=== PATIENT | male | born 1930 | race Caucasian/White ===

== ENCOUNTER 2019-06-13 15:11 | Inpatient (IN) | payer MEDICARE, MEDICAID ==
[~2019-06-13] VITALS: Ht 177.8 cm; Wt 68.9 kg
[2019-06-13] MEDS ORDERED: LIPITOR20 MG PO (17:37)
[2019-06-13] MEDS ORDERED: PEPCID20 MG PO (17:39)
[2019-06-13] MEDS ORDERED: FUROSEMIDE40 MG PO (17:40)
[2019-06-13] MEDS ORDERED: LANTUS SOL100 UNIT/1 SQ (17:40)
[2019-06-13] MEDS ORDERED: LEVOTHYROXINE50 MCG PO (17:41)
[2019-06-13] MEDS ORDERED: MULTIVITAMINS1 EAC5 PO (17:41)
[2019-06-13] MEDS ORDERED: OYSTER SHELL C500 M4 PO (17:42)
[2019-06-13] MEDS ORDERED: PLAVIX75 M1 PO (17:43)
[2019-06-13] MEDS ORDERED: ZINC SULFATE220 M2 PO (17:44)
[2019-06-13] MEDS ORDERED: ELIQUIS2.5 M1 PO (17:45)
[2019-06-13] MEDS ORDERED: ACIDOPHILUS1 EACH PO (17:46)
[2019-06-13] MEDS ORDERED: RISPERDAL0.25 MG PO (17:47)
[2019-06-13] MEDS ORDERED: POTASSIUM CHLO20 ME3 PO (17:49)
[2019-06-13] MEDS ORDERED: HUMALOG100 UNIT/2 SQ (17:51)
[2019-06-13] MEDS ORDERED: Hydralazine Hyd25 MG PO (17:52)
[2019-06-13] MEDS ORDERED: VENTOLIN 02.5 MG/3 M INH (17:52)
[2019-06-13] MEDS ORDERED: Ipratropium Brom3 ML INH (17:53)
[2019-06-13] MEDS ORDERED: ANTI-DIARRHEAL2 MG PO (17:54)
[2019-06-13] MEDS ORDERED: GLUCOSE GEL38 GM PO (17:54)
[2019-06-13] MEDS ORDERED: MILK OF MA400 MG/5 M PO (17:55)
[2019-06-13] MEDS ORDERED: TYLENOL325 M2 PO (17:55)
--- NOTE | 2019-06-14 14:32 | NUR ---
DADA GARCIA a 88 year old M admitted via stretcher from the ADMITTING as a voluntary BY POA admission. Arrived on unit at 1432. ALLERGIES: NKA. Vital signs are: [id number] 122/64 SPO2 99%RA. The client's POA verbally consented to the following forms with stated understanding: Authorization For The Release of Medical Information, Clothing List, Consent to Voluntary Admission and Hospitalization, Consent and Release Forms/Receipt of Rights, Acknowledgement of Advance Directive Information, Behavioral Health Consent Form, and Informed Consent of Medications, witnessed x 2 RNs. Admitted under the services of Dr. KATIE MEDINA,[facility]. A search was conducted and hazardous articles were removed. Client was oriented to the unit. LEELEE CEJA
--- NOTE | 2019-06-14 14:58 | NUR ---
NOTIFIED OF BLOOD SUGAR OF 60 UPON ADMISSION TO UNIT. PT ALERT AND TALKING WITH STAFF. NO S/S DIABETIC IMBALANCE NOTED AT THIS TIME. STATES OK TO GIVE ORANGE JUICE AT THIS TIME AND RECHECK BSG.
--- NOTE | 2019-06-14 15:00 | NUR ---
BSG INCREASED TO 74.
[2019-06-14 15:36] VITALS: BP 122/64
[2019-06-14 15:42] VITALS: BP 122/64
--- NOTE | 2019-06-14 15:48 | NUR ---
PM GROUP/BINGO! PT JUST ADMITTED TO UNIT AND BECOMING ORIENTED. PT ACTIVITY ASSESSMENT WILL BE COMPLETED SOON POSSIBLE.
--- NOTE | 2019-06-14 16:00 | NUR ---
[facility] NURSING HOTEL AND DINING ROOM CASHIER ON UNIT FOR WOUND STAGING.
--- NOTE | 2019-06-14 16:15 | NUR ---
BSG 111
--- NOTE | 2019-06-14 16:36 | NUR ---
ON UNIT TO SEE PT AT THIS TIME. PROVIDED WITH PT CHART. MADE AWARE PT NOTED WITH 10 WOUNDS, WOUND CARE ORDERS NEEDED WELL ORDERS FOR WHEELCHAIR CUSHION AND HEEL PROTECTOR BOOTS.
[2019-06-14 16:56] LABS: BASO # 0.1 10*3/uL (0.0-0.1); BASO % 0.4 % (0.0-1.0); EOS # 0.2 10*3/uL (0.0-0.4); EOS % 1.5 % (1.0-4.0); HEMATOCRIT 33.3 % (42.0-52.0); HEMOGLOBIN 10.4 g/dl (14.0-18.0); LYMPH # 1.4 10*3/uL (1.3-4.4); LYMPH % 10.5 % (27.0-41.0); MEAN CELL VOLUME 95.1 fl (80.0-94.0); MEAN CORPUSCULAR HGB 29.7 pg (27.0-31.0); MEAN CORPUSCULAR HGB CONC 31.2 g/dl (33.0-37.0); MEAN PLATELET VOLUME 12.5 fl (9.6-12.3); MONO # 0.9 10*3/uL (0.1-1.0); MONO % 6.2 % (3.0-9.0); NEUT # 11.1 10*3/uL (2.3-7.9); NEUT % 81.1 % (47.0-73.0); PLATELET COUNT AUTOMATED 165 10*3/uL (130-400); RED CELL DISTRI WIDTH 14.2 % (0-14.5); WHITE BLOOD COUNT 13.7 10*3/uL (4.8-10.8)
[2019-06-14 17:26] LABS: ALBUMIN 2.9 gm/dl (3.1-4.5); CREATININE 1.49 mg/dL (0.70-1.30); POTASSIUM 3.8 mmol/L (3.5-5.1); TOTAL PROTEIN 6.4 gm/dL (6.4-8.2)
[2019-06-14 17:34] LABS: THYROID STIM HORMONE (HS) 2.83 uIU/ml (0.358-4.75)
[2019-06-14 17:35] LABS: VITAMIN D, 25-HYDROXY 39.5 ng/mL (30-100)
--- NOTE | 2019-06-14 18:20 | NUR ---
URINALYSIS OBTAINED VIA CLEAN CATCH, LABELED AND SENT TO LAB VIA PHARMACY TUBE SYSTEM.
--- NOTE | 2019-06-14 18:52 | NUR ---
NOTIFIED OF PODIATRY CONSULT.
[2019-06-14 19:07] LABS: BILIRUBIN NEGATIVE (NEGATIVE); BLOOD NEGATIVE (NEGATIVE); CLARITY CLEAR (CLEAR); COLOR YELLOW (YELLOW); GLUCOSE NEGATIVE (NEGATIVE); KETONE NEGATIVE (NEGATIVE); LEUKO ESTERASE TRACE (NEGATIVE); NITRITE NEGATIVE (NEGATIVE); PH 5.5 (5.0-9.0); SPECIFIC GRAVITY 1.015 (1.005-1.030); UROBILINOGEN 0.2 E.U./dl (0.2-1.0)
[2019-06-14 19:31] LABS: BACTERIA TRACE
--- NOTE | 2019-06-14 20:37 | NUR ---
24 HR chart check completed.
--- NOTE | 2019-06-14 23:40 | NUR ---
P-CONFUSION, PARANOID STATEMENTS, IRRITABLE, NONCOMPLIANCE I-ASSESS ORIENTATION, ENCOURAGE VENTILATION OF FEELINGS & PROVIDE EMOTIONAL SUPPORT & REASSURANCE, ADMINISTER MEDS, MONITOR SLEEP R-MOOD IS IRRITABLE WITH INCREASED YELLING & BEING DISRUPTIVE ON THE UNIT. FREQUENTLY PUSHING CALL ZAMBRANO & ASKING STAFF TO STAY WITH HIM & OTHER NUMEROUS REQUESTES THAT HE WANTS IMMEDIATELY MET. ALERT TO PERSON ONLY & UNRECEPTIVE TO REORIENTATION & STATES "I DONT CARE ABOUT WHAT YEAR IT IS OR WHO THE PRESIDENT IS. I WANT DISCHARGED OUT THE DOOR & IN [place], [place] IN MY OWN HOUSE". WHEN REORIENTED PT BECOMES ARGUMENTATIVE & VOICES PARANOID STATEMENTS. 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 NEVER MET MY MOTHER. SHE YOUNG, WHEN I WAS ONLY A YEAR OLD". RECENT MEMORY IS VERY IMPAIRED. HS BEDSIDE GLUCOSE WAS 184. REFUSED VITAL SIGNS. REFUSED SNACK. ADEMENTALLY REFUSED ALL HS MEDICATIONS & INSULINS. REQUIRES 2 STAFF ASSISTS & HAS BEEN INCONTINENT OF URINE P-CONTINUE TO PROVIDE PHYSICAL ASSISTANCE & EMOTIONAL SUPPORT NEEDED. ENCOURAGE COMPLIANCE WITH ALL TREATMENT.
--- NOTE | 2019-06-15 03:44 | NUR ---
PT HAS BEEN SLEEPING QUIETLY PAST 2229. AWAKENED @ 0345 & BEDSIDE GLUCOSE TAKEN A NURSING MEASURE DUE TO PT NOT EATING & NOT TAKING MEDICATIONS & INSULINS. BS 84. PROMPTED & TOOK APPX 60 CC OF DIET DUSTY JODY MIXED WITH CRANBERRY JUICE.
--- NOTE | 2019-06-15 06:05 | NUR ---
PT SLEPT PAST 2230 EXCEPT FOR BRIEF AWAKENING @ 0345. RETURNED TO SLEEP. BEDSIDE GLUCOSE WAS 81.
--- NOTE | 2019-06-15 06:23 | NUR ---
AM BEDSIDE GLUCOSE 81. CO-0PERATIVE WITH LABS.
[2019-06-15 06:43] LABS: CHOLESTEROL 85 mg/dL (<200); HDL CHOLESTEROL 32 mg/dl (40-60); LDL CHOLESTEROL 34 mg/dL (9-159); TRIGLYCERIDES 96 mg/dl (<150); VLDL CHOLESTEROL 19 mg/dL (6-40)
--- NOTE | 2019-06-15 07:12 | NUR ---
REFUSED ALL AM MEDS.
[2019-06-15 07:52] VITALS: BP 127/62
--- NOTE | 2019-06-15 09:00 | NUR ---
DR. BENNETT ON UNIT TO ASSESS PATIENT.
--- NOTE | 2019-06-15 12:16 | NUR ---
PODIATRY CONSULT FOR BIATERAL HEEL WOUNDS AT [phone].
--- NOTE | 2019-06-15 13:31 | NUR ---
P: IRRITABLE, ANGRY, REFUSING MEDICATIONS AND TO EAT. I: ONE ON ONE REDIRECTION, ENCOURAGED MEDICATION COMPLAINCE AND TO EAT MEALS. R: EFFECTIVE FOR LUNCH MEAL AND MEDICATION; MORE COOPERATIVE AFTER FAMILY VISIT. PATIENT REFUSED TO PARTICIPATE WITH INTERVIEW, ALONG WITH MEDICATIONS. PATIENT ALLOWED THIS NURSE TO CHANGE DRESSING TREATMENTS. PATINT IS ALERT TO PERSON WITH CONFUSION; ABLE TO VOICE NEEDS. 2 PERSON ASSIST WITH ACTIVITIES OF DAILY LIVING, CONITNENT OF BOWEL AND BLADDER. SET UP FOR MEALS; REFUSED MEALS UNTIL LUNCH TIME. Q 15 MINUTE SAFETY CHECKS MAINTAINED. PATIENT UP IN BRIA CHAIR FOR COMFORT. HEEL PROTECTOR ON FOR SKIN CARE. P: CONTINUE TO MONITOR MOOD, AGGRESSION AND DELUSIONS. PROVIDE ONE ON ONE AND REDIRECTION NEEDED.
--- NOTE | 2019-06-15 14:10 | NUR ---
DR. KEARNEY ON UNIT TO ASSESS PATIENT.
--- NOTE | 2019-06-15 16:44 | NUR ---
Shift chart check completed.
--- NOTE | 2019-06-15 19:25 | NUR ---
24 HR chart check completed.
[2019-06-15 19:53] VITALS: BP 130/64
--- NOTE | 2019-06-15 21:39 | NUR ---
P-CONFUSION I-ASSESS ORIENTATION, ENCOURAGE VENTILATION OF FEELINGS & PROVIDE EMOTIONAL SUPPORT & REASSURANCE, ADMINISTER MEDS, MONITOR SLEEP R-MOOD IS PLEASANT THIS EVENING WITH A MUCH BRIGHTER AFFECT. ALERT & ORIENTED TO PERSON, PLACE & NAME OF PRESIDENT. STATED THE YEAR WAS 2012. MAINTAINES GOOD EYE CONTACT & APPROPRIATE CONVERSATION. NO YELLING OR AGITATION. SAT IN THE DINING ROOM IN A BRIA CHAIR WATCHING TV & TALKING APPROPRIATE WITH A FEMALE PEER. CONCENTRATION IS MUCH BETTER BUT THERE ARE STILL SOME MEMORY DEFICITS AT TIMES. HS BEDSIDE GLUCOSE WAS 184. COMPLIANT WITH ALL ASPECTS OF CARE & TOOK HS MEDICATIONS. ATE SNACK WITH A VERY GOOD APPETITE. REQUIRES 2 STAFF ASSISTS FOR TRANSFERS. P-CONTINUE TO MONITOR & PROVIDE PHYSICAL ASSISTANCE & EMOTIONAL SUPPORT NEEDED.
--- NOTE | 2019-06-16 05:54 | NUR ---
PT HAS SLEPT QUIETLY PAST 2144
--- NOTE | 2019-06-16 06:38 | NUR ---
AM BEDSIDE GLUCOSE 93. PLEASANT. CO-OPERATIVE. TOOK AM MEDICATIONS.
--- NOTE | 2019-06-16 07:09 | NUR ---
DADA GARCIA [id number] Please refer to the physician's history and physical for past medical history, comorbid conditions, and allergies. Diagnosis: INTERMITTENT EXPLOSIVE DISORDER Ervin Score: 11,HIGH RISK WOUND DESCRIPTIONS: Wound Number: 1 Location of the wound: left heel Type of wound: unstagaeble Thickness: Full Size: 5.0cm x 4.7cm x 0.1cm Tunneling: none Undermining: none Sinus Tract: none Presence of Exudate: Serous Amount: Light Color: Brown, yellow Odor: None Periwound Skin Appearance: Scar Wound edges: approximated Pain (associated with wound): none at time of assessment How does patient state this happened? pt stated this has been going on for 3 years and follows with [facility] Wound Number: 2 Location of the wound: left 3rd toe Thickness: Partial Size: 0.2cm x 0.2cm x <0.1cm Tunneling: none Undermining: none Sinus Tract: none Presence of Exudate: none Amount: None Color: Red Odor: None Periwound Skin Appearance: Erythema Wound edges: approximated Pain (associated with wound): none at time of assessment How does patient state this happened? pt stated this started about 1 year ago on his toes and follows with Dr. [facility] Wound Number: 3 Location of the wound: left 3rd toe Thickness: Partial Size: 0.3cm x 0.3cm x <0.1cm Tunneling: none Undermining: none Sinus Tract: none Presence of Exudate: none Amount: None Color: Red, brown Odor: None Periwound Skin Appearance: Erythema Wound edges: approximated Pain (associated with wound): none at time of assessment How does patient state this happened? pt stated this started about 1 year ago on his toes and follows with Dr. [facility] Wound Number: 4 Location of the wound: right heel Type of wound: stage 2 Thickness: Partial Size: 0.2cm x 1.3cm x 0.1cm Tunneling: none Undermining: none Sinus Tract: none Presence of Exudate: Serous Amount: Light Color: Red Odor: None Periwound Skin Appearance: Scar Wound edges: approximated Pain (associated with wound): none at time of assessment How does patient state this happened? pt stated this has been going on for 3 years and follows with [facility]. Wound Number: 5 Location of the wound: right hallux Thickness: Partial Size: 0.4cm x 0.2cm x <0.1cm Tunneling: none Undermining: none Sinus Tract: none Presence of Exudate: none Amount: None Color: Red Odor: None Periwound Skin Appearance: Erythema Wound edges: approximated Pain (associated with wound): none at time of assessment How does patient state this happened? pt stated this started about 1 year ago on his toes and follows with Dr. [facility] Wound Number: 6 Location of the wound: right great toe Thickness: Partial Size: 0.3cm x 1.3cm x <0.1cm Tunneling: none Undermining: none Sinus Tract: none Presence of Exudate: Serosanguineous Amount: Light Color: Red Odor: None Periwound Skin Appearance: Erythema Wound edges: approximated Pain (associated with wound): none at time of assessment How does patient state this happened? pt stated this started about 1 year ago on his toes and follows with Dr. [facility] Wound Number: 7 Location of the wound: right 2nd toe Thickness: Partial Size: 0.4cm x 0.4cm x <0.1cm Tunneling: none Undermining: none Sinus Tract: none Presence of Exudate: none Amount: none Color: Red Odor: None Periwound Skin Appearance: Erythema Wound edges: approximated Pain (associated with wound): none at time of assessment How does patient state this happened? pt stated this started about 1 year ago on his toes and follows with Dr. [facility] Wound Number:8 coccyx is red and blanchable at time of assessment. No open areas noted at time of assessment. No drainage noted at time of assessment. Wound Number: 9 Location of the wound: right forearm Thickness: skintear Size: 0.9cm x 1.0cm x 0.1cm Tunneling: none Undermining: none Sinus Tract: none Presence of Exudate: Serosanguineous Amount: Light Color: Red Odor: None Periwound Skin Appearance: Erythema Wound edges: approximated Pain (associated with wound): none at time of assessment How does patient state this happened? pt stated he bumped his arm about one week moving furniture Wound Number: 10 Location of the wound: left elbow Thickness: Partial Size: 2.2cm x 1.7cm x <0.1cm Tunneling: none Undermining: none Sinus Tract: none Presence of Exudate: Serosanguineous Amount: Light Color: Red Odor: None Periwound Skin Appearance: Erythema Wound edges: approximated Pain (associated with wound): none at time of assessment How does patient state this happened? pt stated he bumped his arm about one week moving furniture right 5th toe is red and blanchable at time of assesssment. No open areas noted at time of assessment. no drainage noted at time of assessment. Left posterior lower extremity indent scar noted. No draiange at time of assessment. No redness at time of assessment. Surface the patient is resting on: Proform SKIN PREVENTION RECOMMENDATION: 1. Pressure redistribution support surface as appropriate 2. Elevate heels 3. Remove boots/TEDS every shift and reapply 4. Head of bed 30 degrees as tolerated 5. Assess nutrition and hydration 6. Manage moisture 7. Avoid the use of containment devices while in bed 8. Use absorptive products on surfaces limit layers of linens on bed 9. Turn and reposition every 1-2 hours in bed and every 1 hour in chair as tolerated 10. Weight shifts every 15 minutes while up in chair 11. Offloading with pillows or device to keep heels elevated off bed 12. Monitor skin at least every shift 13. Inspect under medical devices twice a day WOUND TREATMENT RECOMMENDATIONS: Continue heel raiser pro boots to bilateral feet while in bed. Continue wheelchair cushion when oob. Venous and arterial ultrasounds pending at time of assessment. Podiatry is already on consult for foot wounds if studies allow may need debridement D/C calazime D/C stage 1 guidelines Dressing change: Cleanse coccyx with soap and water and apply hydraguard every shift and prn for soiling. D/C skin tear guidelines to left elbow D/C skin tear guidelines to right forearm. Skin tear guidelines: Cleanse left elbow and right forearm with nss and apply sureprep around the wound hydrogel to wound bed and cover with optifoam gentle every 2 days and prn for soiling. D/C unstageable guidelines to right heel D/C unstageable guidelines to left heel Unstagable guidelines: Apply betadine to right heel, left heel, right 2nd toe, right great toe, right hallux, left 3rd toe and left 2nd toe daily and cover with dsd daily and prn for soiling D/C skin tear guidelines to right 2nd toe. D/C skin tear guideline to right hallux D/C skin tear guidelines to right 3rd toe D/C skin tear guidelines to right great toe. D/C skin tear guidelines to left 3rd toe D/C skin tear guidelines to left 2nd toe
[2019-06-16 07:47] VITALS: BP 148/66
--- NOTE | 2019-06-16 07:55 | NUR ---
PHYSICAL THERAPY Screen receievd as well as orders for PT will follow, thank you Carolee Greer PT
--- NOTE | 2019-06-16 08:15 | NUR ---
Treatment Plan meeting was held with Dr. Richards, SEDA Moy, RN, AT, BUILDING WRECKER-S and Team Foreman in attendance. Plan for discharge next week. Pt. to return to [facility].
--- NOTE | 2019-06-16 08:58 | NUR ---
Nursing screen and Occupational Therapy referral received. Thank you. Re Garvey OTR/l
--- NOTE | 2019-06-16 10:27 | NUR ---
Dr. Alejandro notified of wound care recommendations.
--- NOTE | 2019-06-16 10:28 | NUR ---
Spoke with Criss in Admissions at [facility]. Pt. will return to Facility at discharge. Clinical Updates faxed to facility.
--- NOTE | 2019-06-16 11:46 | NUR ---
AM GROUP PT ATTENDED MORNING GROUP THERAPY AND PARTICIPATED IN ALL ACTIVITIES. PT WAS QUIET AND ON TASK. PT EXHIBITED NO AGITATION OR AGGRESSION WHILE IN GROUP. PT WAS POLITE AND CONVERSATION WAS IN CONTEXT.
--- NOTE | 2019-06-16 15:03 | NUR ---
Met with pt, his Larisa, and their daughter Demetria. Discussed pt's medical hx and what caused pt's [facility] admission. Pt shared about his history. Confirmed with pt's family that they are wanting pt to return to [place]. Pt was pleasant throughout conversation. Pt showed no adverse behavior nor voiced any hallucinations,
--- NOTE | 2019-06-16 15:36 | NUR ---
PM GROUP PT WAS PRESENT FOR AFTERNOON GROUP THERAPY BUT CHOSE NOT TO PARTICIPATE IN ANY ACTIVITY OFFERED. PT WAS OBSERVANT AND PLEASANT. PT EXHIBITED NO AGITATION OR AGGRESSION WHILE IN GROUP.
[2019-06-16 19:54] VITALS: BP 149/75
--- NOTE | 2019-06-16 20:47 | NUR ---
EVENING/LEISURE SKILLS PT ATTENDED AND PARTICIPATED IN ALL ACTIVITY. PT PLEASANT AND JOINING IN PEER CONVERSATION. PT EXPRESSES CONFUSION AT TIMES BUT EASILY REDIRECTED. PT EXPRESSED NO HALLUCINATIONS OR DELUSIONS AT THIS TIME, BUT ATTEMPTING TO GET UP AND WALK ALTHOUGH PT HAS BOOTS ON FEET. THIS STAFF ATTEMPTS TO REDIRECT PT. MHW ATTEMPTING REDIRECTION WELL. PT WILL CONTINUE TO ATTEND AN DPARTICIPATE IN FUTURE GROUP SESSIONS TO BEST OF PT ABILITY.
--- NOTE | 2019-06-16 23:28 | NUR ---
24 HR chart check completed.
--- NOTE | 2019-06-17 00:28 | NUR ---
P-CONFUSION I-ASSESS ORIENTATION, ENCOURAGE VENTILATION OF FEELINGS & PROVIDE EMOTIONAL SUPPORT & REASSURANCE, ADMINISTER MEDS, MONITOR SLEEP R-MOOD IS PLEASANT WITH A BRIGHT AFFECT. ALERT & ORIENTED TO PERSON, PLACE & NAME OF PRESIDENT. STATED THE YEAR WAS 2012. MAINTAINES GOOD EYE CONTACT & APPROPRIATE CONVERSATION. NO YELLING OR AGITATION. SAT IN THE DINING ROOM IN A BRIA CHAIR PARTICIPATING APPROPRIATELY IN RECREATIONAL ACTIVITIES. FAIR TO GOOD CONCENTRATION NOTED BUT THERE ARE STILL SOME MEMORY DEFICITS AT TIMES. HS BEDSIDE GLUCOSE WAS 288. COMPLIANT WITH ALL ASPECTS OF CARE & TOOK HS MEDICATIONS. ATE SNACK WITH A VERY GOOD APPETITE. REQUIRES 2 STAFF ASSISTS FOR TRANSFERS. P-CONTINUE TO MONITOR & PROVIDE PHYSICAL ASSISTANCE & EMOTIONAL SUPPORT NEEDED.
--- NOTE | 2019-06-17 04:27 | NUR ---
Upon discharge recommend patient to follow up for wound care in outpatient setting continue current wound care orders at discharging facility.
--- NOTE | 2019-06-17 06:37 | NUR ---
PT HAS SLEPT PAST 2244
--- NOTE | 2019-06-17 06:43 | NUR ---
AM BEDSIDE GLUCOSE 84
[2019-06-17 08:00] VITALS: BP 125/83
--- NOTE | 2019-06-17 08:00 | NUR ---
Treatment Plan meeting was held with Dr. Richards, SEDA Moy, RN, AT, PREFORMING MACHINE OPERATOR-S and Marking Devices Assembler in attendance. Plan for discharge Sunday. Pt. will return to [place] at discharge.
--- NOTE | 2019-06-17 08:00 | NUR ---
ON UNIT TO SEE PT AT THIS TIME.
--- NOTE | 2019-06-17 08:39 | NUR ---
Dr. Amanda notified of wound care recommendations.
--- NOTE | 2019-06-17 08:48 | NUR ---
AND PRUDENCIO PMHNP-BC ON UNIT TO SEE PT AT THIS TIME. UPDATE GIVEN.
--- NOTE | 2019-06-17 11:22 | NUR ---
NOTIFIED OF RESULT OF ULTRASOUND SHOWING POSITIVE DVT IN LEFT POPLITEAL VEIN.
--- NOTE | 2019-06-17 11:36 | NUR ---
AM GROUP PT WAS IN TESTING AT THE START OF GROUP AND WAS BROUGHT IN AT THE END OF MORNING GROUP THERAPY. PT WAS CONTENT TO SIT AND OBSERVE.
--- NOTE | 2019-06-17 13:18 | NUR ---
NOTIFIED OF RESULTS OF ARTERIAL STUDIES: DIFFUSE CALCIFIC ATHEROSCLEROTIC DISEASE THROUGHOUT. OCCLUDED LEFT ANTERIOR TIBIAL ARTERY. NNO RECIEVED AT THIS TIME.
--- NOTE | 2019-06-17 13:29 | NUR ---
PT'S FAMILY/DPOAH - PETRA KOLB AND RANDY UPDATED RE: +DVT AND NEW MEDICATION ORDERS.
--- NOTE | 2019-06-17 15:35 | NUR ---
PM GROUP PT ATTENDED AFTERNOON GROUP THERAPY AND PARTICIPATED TO THE BEST OF HIS ABILITY. PT BEGAN AND ATTEMPTING TO GET UP ON HIS OWN. PT REQUESTED TO USE THE BATHROOM AND WAS TAKEN TO W IN HALLWAY.
[2019-06-17 16:39] VITALS: BP 158/76
--- NOTE | 2019-06-17 17:59 | NUR ---
PODIATRY RESIDENT ON UNIT TO SEE PT AT THIS TIME, EXAMINED PT, AWARE OF VENOUS AND ARTERIAL STUDY RESULTS. NO FURTHER ORDERS RECIEVED AT THIS TIME.
--- NOTE | 2019-06-17 18:00 | NUR ---
P- INCREASED CONFUSION AND MILD RESTLESSNESS NOTED IN EVENING HOURS FOLLOWING DINNER. I- ORIENTATION, MOOD AND BEHAVIOR ASSESSED. ASSESSED PT FOR SI/HI, INTENT OR PLAN. ASSESSED PT FOR S/S HALLUCINATIONS, PARANOIA AND/OR DELUSIONS. MEDICATIONS ADMINISTERED PER PHYSICIAN'S ORDERS. ASSISTANCE WITH ADL CARE PROVIDED NEEDED. ENCOURAGED PT TO ATTEND AND PARTICIPATE IN ABARCA MILIEU GROUPS AND ACTIVITIES. R- DURING AM MED PASS ORIENTATION LEVEL ASSESSED, PT ALERT AND ORIENTED TO PERSON, PLACE AND APPROX TIME. ST/LT MEMORY GAPS NOTED. RESPS EASY AND EVEN ON ROOM AIR. MOOD APPEARS STABLE WITH APPROPRIATE AFFECT. PT SMILING, LAUGHING AND JOKING WITH STAFF APPROPRIATELY. SPEECH IS WNL AND COHERENT, ABLE TO MAKE NEEDS KNOWN WITHOUT DIFFICULTY. PT DENIES SI/HI, INTENT OR PLAN. PT DENIES HALLUCINATIONS, NO RESPONSE TO INTERNAL STIMULI NOTED. NO PARANOIA OR DELUSIONS NOTED. MED COMPLIANT WITHOUT DIFFICULTY. COMPLIANT WITH HANDS ON CARE. NO AGGRESSIVE OR THREATENING BEHAVIORS DISPALYED. THIS EVENING AFTER DINNER PT HAS BECOME INCREASINGLY MORE CONFUSED AND RESTLESS, REDIRECTION AND 1:1 PROVIDED. EFFECTIVE OF THIS TIME. P- PLAN TO CONTINUE CURRENT TX, CONTINUE TO MONITOR MOOD AND BEHAVIORS, PROVIDE APPROPRIATE REORIENTATION, REDIRECTION AND 1:1 NEEDED. CONTINUE TO ENCOURAGE MEDICATION COMPLIANCE WELL GROUP ATTENDANCE AND PARTICIPATION.
--- NOTE | 2019-06-17 20:36 | NUR ---
EVENING/BINGO PT ATTENDED BUT ONLY OBSERVED PEERS PLAYING BINGO. PT OFFERED TO PLAY AND STATED "NO, I'M NOT MUCH INTO BINGO" PT EXPRESSED NO HALLUCINATIONS OR DELUSIONS AT THIS TIME AND WILL CONTINUE TO ATTEND GROUP SESSIONS AND PARTICIPATE TO BEST OF PT ABILITY.
--- NOTE | 2019-06-17 20:59 | NUR ---
24 HR chart check completed.
--- NOTE | 2019-06-18 00:26 | NUR ---
P-CONFUSION I-ASSESS ORIENTATION, ENCOURAGE VENTILATION OF FEELINGS & PROVIDE EMOTIONAL SUPPORT & REASSURANCE, ADMINISTER MEDS, MONITOR SLEEP R-MOOD IS PLEASANT WITH A BRIGHT AFFECT. ALERT & ORIENTED TO PERSON, PLACE & NAME OF PRESIDENT. STATED THE YEAR WAS 2012. MAINTAINES GOOD EYE CONTACT & APPROPRIATE CONVERSATION. NO YELLING OR AGITATION. SAT IN THE DINING ROOM IN A BRIA CHAIR PARTICIPATING APPROPRIATELY IN RECREATIONAL ACTIVITIES. FAIR TO GOOD CONCENTRATION NOTED WITH SOME MEMORY DEFICITS. HS BEDSIDE GLUCOSE WAS 139. COMPLIANT WITH ALL ASPECTS OF CARE & TOOK HS MEDICATIONS. ATE SNACK WITH A VERY GOOD APPETITE. REQUIRES 2 STAFF ASSISTS. P-CONTINUE TO MONITOR & PROVIDE PHYSICAL ASSISTANCE & EMOTIONAL SUPPORT NEEDED.
--- NOTE | 2019-06-18 06:05 | NUR ---
AM BEDSIDE GLUCOSE 87
[2019-06-18 06:23] LABS: BASO # 0.1 10*3/uL (0.0-0.1); BASO % 0.7 % (0.0-1.0); EOS # 0.5 10*3/uL (0.0-0.4); EOS % 5.7 % (1.0-4.0); HEMATOCRIT 32.7 % (42.0-52.0); HEMOGLOBIN 10.2 g/dl (14.0-18.0); LYMPH # 1.7 10*3/uL (1.3-4.4); LYMPH % 18.9 % (27.0-41.0); MEAN CELL VOLUME 93.7 fl (80.0-94.0); MEAN CORPUSCULAR HGB 29.2 pg (27.0-31.0); MEAN CORPUSCULAR HGB CONC 31.2 g/dl (33.0-37.0); MEAN PLATELET VOLUME 12.6 fl (9.6-12.3); MONO # 0.9 10*3/uL (0.1-1.0); MONO % 9.6 % (3.0-9.0); NEUT # 5.8 10*3/uL (2.3-7.9); NEUT % 64.7 % (47.0-73.0); PLATELET COUNT AUTOMATED 163 10*3/uL (130-400); RED BLOOD COUNT 3.49 10*6/uL (4.50-5.90); RED CELL DISTRI WIDTH 14.1 % (0-14.5); WHITE BLOOD COUNT 8.9 10*3/uL (4.8-10.8)
[2019-06-18 06:32] LABS: CREATININE 1.36 mg/dL (0.70-1.30); POTASSIUM 4.7 mmol/L (3.5-5.1)
[2019-06-18 08:00] VITALS: BP 121/60
--- NOTE | 2019-06-18 08:00 | NUR ---
Treatment Plan meeting was held with Dr. Richards, SEDA Moy, RN, AT, LIFE INSURANCE UNDERWRITER-S and Shank Sander in attendance. Plan for discharge next week. Pt. will return to [place].
--- NOTE | 2019-06-18 08:47 | NUR ---
AND PRUDENCIO PMHNP-BC ON UNIT TO SEE PT AT THIS TIME. UPDATE GIVEN.
--- NOTE | 2019-06-18 09:50 | NUR ---
AND TEAM ON UNIT TO SEE PT AT THIS TIME, RECOMMENDS PT HAVE VASCULAR FOLLOW UP AFTER DISCHARGE IN REGARD TO RESULTS OF ARTERIAL STUIDES. UPDATED. HAND TIER AWARE. AWARE OF AM LAB RESULTS INCLUDING INR 1.0 STATES TO CONTINUE COUMADIN AND LOVENOX FOR TX OF +DVT TO LLE.
--- NOTE | 2019-06-18 11:55 | NUR ---
AM GROUP PT WAS IN AND OUT OF MORNING GROUP THERAPY DUE TO TESTING. PT IS PLEASANTLY CONFUSED AND IS UNABLE TO PARTICIPATE DUE TO HIS CONFUSION. PT ENJOYS SOCIALIZING AND OBSERVING. PT EXPRESSED NO AGITATION OR AGGRESSION WHILE IN GROUP.
--- NOTE | 2019-06-18 15:36 | NUR ---
P- MILD CONFUSION. EASILY REDIRECTABLE. NO AGGRESSIVE BEHAVIORS. I- ORIENTATION, MOOD AND BEHAVIORS ASSESSED. ASSESSED PT FOR SI/HI, INTENT OR PLAN. ASSESSED PT FOR S/S HALLUCINATIONS, PARANOIA AND/OR DELUSIONS. MEDICATIONS ADMINISTERED PER PHYSICIAN'S ORDERS. ASSISTANCE WITH ADL CARE PROVIDED NEEDED. ENCOURAGED PT TO ATTEND AND PARTICIPATE IN ABARCA MILIEU GROUPS AND ACTIVITIES. R- PT IS ALERT AND ORIENTED TO PERSON, PLACE, APPROXIMATE TIME. MILD CONFUSION NOTED. MEMORY GAPS NOTED. RESPS EASY AND EVEN ON ROOM AIR. MOOD HAS BEEN STABLE THIS SHIFT WITH APPROPRIATE AFFECT. SPEECH IS WNL AND COHERENT, ABLE TO MAKE NEEDS KNOWN WITHOUT DIFFICULTY. PT DENIES SI/HI, INTENT OR PLAN. PT DENIES HALLUCINATIONS, NO RESPONSE TO INTERNAL STIMULI NOTED. NO PARANOIA OR DELUSIONS NOTED. PT IS CALM, PLEASANT AND COOPERATIVE. NO AGGRESSIVE BEHAVIORS DISPLAYED. INTERACTS APPROPRIATELY WITH STAFF AND PEERS. PT CONFUSED AT TIMES BUT EASILY REDIRECTED. NO AGGRESSIVE BEHAVIORS DISPLAYED. PT IS MED COMPLIANT WITHOUT DIFFICULTY. NO DISTRESS NOTED. P- PLAN TO CONTINUE CURRENT TREATMENT, CONTINUE TO MONITOR MOOD AND BEHAVIORS, PROVIDE APPROPRIATE REORIENTATION, REDIRECTION AND 1:1 NEEDED. CONTINUE TO ENCOURAGE MEDICATION COMPLIANCE WELL GROUP ATTENDANCE AND PARTICIPATION.
--- NOTE | 2019-06-18 15:55 | NUR ---
Clinical updates faxed to [facility]. Spoke with [facility] at [facility] and notified her of Plans to discharge next week.
[2019-06-18 19:32] VITALS: BP 120/62
--- NOTE | 2019-06-19 04:24 | NUR ---
PT HAS BEEN PLEASANT COOPERATIVE WITH HOC AND ALL INTERACTIONS THIS EVENING. PT HAS SLEPT GREATER THEN 7 HOURS, MEDICATION COMPLIANT, NO SI/HI OR DELUSINONS NOTED. CONTINUES WITH ST/LT MEMORY DEFICITS AT THIS TIME.
[2019-06-19 07:30] LABS: BASO # 0.1 10*3/uL (0.0-0.1); BASO % 0.7 % (0.0-1.0); EOS # 0.5 10*3/uL (0.0-0.4); EOS % 6.2 % (1.0-4.0); HEMATOCRIT 35.3 % (42.0-52.0); HEMOGLOBIN 10.9 g/dl (14.0-18.0); LYMPH # 1.3 10*3/uL (1.3-4.4); LYMPH % 15.2 % (27.0-41.0); MEAN CELL VOLUME 93.9 fl (80.0-94.0); MEAN CORPUSCULAR HGB CONC 30.9 g/dl (33.0-37.0); MEAN PLATELET VOLUME 12.7 fl (9.6-12.3); MONO # 0.7 10*3/uL (0.1-1.0); MONO % 8.2 % (3.0-9.0); NEUT # 5.9 10*3/uL (2.3-7.9); NEUT % 69.3 % (47.0-73.0); PLATELET COUNT AUTOMATED 158 10*3/uL (130-400); RED BLOOD COUNT 3.76 10*6/uL (4.50-5.90); RED CELL DISTRI WIDTH 14.1 % (0-14.5); WHITE BLOOD COUNT 8.5 10*3/uL (4.8-10.8)
[2019-06-19 07:48] LABS: INTERNATIONAL NORM RATIO 1.1 (2.0-3.5)
[2019-06-19 08:00] VITALS: BP 130/66
[2019-06-19 08:05] LABS: POTASSIUM 4.5 mmol/L (3.5-5.1)
[2019-06-19 08:09] LABS: CREATININE 1.49 mg/dL (0.70-1.30)
--- NOTE | 2019-06-19 09:00 | NUR ---
Treatment plan meeting was held this a.m. with Dr. Maurice RN and Bearingizer in attendance. Plan for discharge next week with return to [facility].
--- NOTE | 2019-06-19 10:07 | NUR ---
DR BENNETT ON UNIT TO ASSESS PT, UPDATE PROVIDED.
--- NOTE | 2019-06-19 11:38 | NUR ---
AM GROUP/ASHKANUS PT WAS PRESENT FOR MORNING GROUP THERAPY RECLINED IN A BRIA CHAIR AND WAS PUSHED TO THE TABLE WITH PEERS TO BE A PART OF THE DISCUSSION. PT WAS ATTENTIVE AND OBSERVANT AND ALTHOUGH UNABLE TO CONTRIBUTE TO THE DISCUSSION WAS CONTENT TO LISTEN. PT IS UNABLE TO PARTICIPATE AT THIS TIME DUE TO COGNITIVE IMPAIRMENT. PT EXHIBITED NO AGITATION OR AGGRESSION WHILE IN GROUP
--- NOTE | 2019-06-19 15:41 | NUR ---
PM GROUP/FINGER PAINTING PT ATTENDED AFTERNOON GROUP THERAPY AND PARTICIPATED IN ALL ACTIVITIES WITH HELP FROM THE MHW. PT WAS ENGROSSED IN THE ACTIVITY AND EXHIBITED NO AGITATION OR AGGRESSION WHILE IN GROUP
--- NOTE | 2019-06-19 15:48 | NUR ---
PT HAS BEEN PLEASANT, COOPERATIVE WITH ASSESSMENT. PT EASILY CONVERSES WITH THIS NURSE, SOME INTERMITTENT CONFUSION APPARENT. MEDICATION COMPLIANT, PARTICIPATED IN GROUP, NO ADVERSE MOODS OR BEHAVIORS NOTED.
--- NOTE | 2019-06-19 17:03 | NUR ---
DR. AKBAR MADE AWARE OF INR 1.1, STATES TO CONTINUE WITH COUMADIN 5MG.
[2019-06-19 19:44] VITALS: BP 136/64
--- NOTE | 2019-06-19 21:00 | NUR ---
UP WATCHING TV. MEDICATION COMPLIANT. SMILING AND INTERACTIVE. ORIENTED X1. MEDICATION COMPLIANT. ATE SNACK. NO C/O. WILL CONTINUE TO PROVIDE MEDICATION ORDERED. MONITOR FOR MOOD/BEHAVIOR CHANGES.
--- NOTE | 2019-06-20 03:27 | NUR ---
24 HR chart check completed.
--- NOTE | 2019-06-20 06:01 | NUR ---
SLEPT WELL ALL NIGHT. SLEPT 9 HOURS
[2019-06-20 07:45] VITALS: BP 130/62
--- NOTE | 2019-06-20 07:59 | NUR ---
Patient eating quietly with no c/o discomfort. Respirations easy and regular. Vital signs stable. No overt distress. LEELEE CEJA
--- NOTE | 2019-06-20 08:00 | NUR ---
Treatment Plan meeting was held with SEDA Moy, RN, AT, PLANT HEALTH MANAGER-S and Driver Retraining Instructor in attendance. Plan for discharge next week. Pt. will return to [place] at discharge.
--- NOTE | 2019-06-20 11:35 | NUR ---
AM GROUP PT ATTENDED MORNING GROUP THERAPY AND PARTICIPATED BY COLORING A BENNETT. PT WAS FOCUSED AND ON TASK. PT EXHIBITED NO AGITATION OR AGGRESSION WHILE IN GROUP
--- NOTE | 2019-06-20 12:30 | NUR ---
Occupational therapy orders received. Per discussion with nursing on U, patient is daiana lifted at baseline and is dependent for all ADLs and transfers. No further OT is indicated at this time. OT orders will be discharged. Thank you. Sherry Fabian, OTR/L
--- NOTE | 2019-06-20 13:08 | NUR ---
PHYSICAL THERAPY Attempted to see pt for evaluation however after speaking with staff at [facility] pt is from a long-term care facility he is nonambulatory and is OOB to [facility] chair with daiana. No skilled PT need at this time munir discontinue orders Carolee Greer PT
--- NOTE | 2019-06-20 13:42 | NUR ---
PT HAS BEEN PLEASANT, COOPERATIVE WITH CARE, INTERACTING APPROPRIATELY WITH PEERS AND STAFF. PT EDUCATED ON MEDICATIONS, COMPLIANT WITHOUT DIFFICULTY, CONFUSION APPARENT. PARTICIPATED IN GROUP, NO ADVERSE MOODS OR BEHAVIORS NOTED.
--- NOTE | 2019-06-20 16:25 | NUR ---
Clinical Updates faxed to Cory Duvall.
[2019-06-20 20:00] VITALS: BP 128/60
--- NOTE | 2019-06-21 01:38 | NUR ---
P-CONFUSION I-PROVIDE 1:1 WITH THERAPEUTIC INTERVENTIONS. PRESENT REALITY AND REORIENT NEEDED. ENCOURAGE MEDICATION COMPLIANCE AND EDUCATE. MONITOR SLEEP. R-"OH WHAT DO YOU WANT NOW?". PT ALERT AND ORIENTED TO SELF, PLEASANTLY CONFUSED. PT CALM, COOPERATIVE. PT DISRUPTIVE AT TIMES BY YELLING OUT INTO HALLWAY, EASILY REDIRECTED. PT MEDICATION COMPLIANT WITHOUT DIFFICULTY, UNABLE TO EDUCATE DUE TO COGNITION. PT DENIES SI/HI, HALLUCINATIONS OR PAIN. NO NOTED RESPONDING TO INTERNAL STIMULI. NO PARANOIA/DELUSIONS NOTED. PT ABLE TO VOICE NEEDS, INCONTINENT OF BOWEL AND BLADDER, COMPLIANT WITH HOC. PT RESTING QUIETLY AT THIS TIME, NO SIGNS OR SYMPTOMS OF DISTRESS NOTED. P-CONTINUE TO REORIENT AND PRESENT REALITY DURING INTERACTIONS. PROVIDE 1:1 WITH THERAPEUTIC INTERVENTIONS. ENCOURAGE MEDICATION COMPLIANCE. MAINTAIN Q 15 MIN CHECKS.
--- NOTE | 2019-06-21 06:05 | NUR ---
PATIENT OBSERVED ON Q 15 MIN CHECKS TO HAVE SLEPT APPROX 6 HOURS THIS SHIFT WITH NO AWAKENINGS. NO SIGNS OR SYMPTOMS OF DISTRESS NOTED.
[2019-06-21 06:49] VITALS: BP 132/72
--- NOTE | 2019-06-21 07:01 | NUR ---
PATIENTS BSG AT 0639 WAS 54. PATIENT ASYMPTOMATIC, RECEIVED ORANGE JUICE WITH 2 SUGARS AND A SANDWICH. PT RECHECKED AT 0700 WITH RESULT OF 68. UPDATED, NO NEW ORDERS RECEIVED.
[2019-06-21 07:39] VITALS: BP 126/64
--- NOTE | 2019-06-21 11:43 | NUR ---
AM GROUP/YAVocoMDZEE! PT ATTENDED AND PARTICIPATED BY ATTEMPTING A WORDSEARCH AND OBSERVING PEERS PLAYING Ameibo. PT PLEASANT WITH NO COMBATIVE BEHAVIORS AT THIS TIME. PT WILL CONTINUE TO ATTEND AND PARTICIPATE IN FUTURE GROUP SESSIONS TO BEST OF PT ABILITY.
[2019-06-21 11:50] VITALS: BP 122/60
--- NOTE | 2019-06-21 15:25 | NUR ---
PT ALERT AND ORIENTED TO PERSON, PLACE, AND YEAR WITH CONFUSION NOTED AT TIMES. STABLE MOOD. ORGANIZED AND GOAL DIRECTED. PT DENIES DEPRESSION AND FEELING OF SADNESS. PT ALSO DENIES HALLUCINATIONS, DELUSIONS, SI, AND HI. CONTINUE TO MONITOR BEHAVIORS WITH Q15 MINUTE SAFETY CHECKS.
--- NOTE | 2019-06-21 15:52 | NUR ---
PM GROUP/ART/GAME PT IN ATTENDANCE AND ENCOURAGED TO PARTICIPATE. PT FOCUSED ON PICKING AT HANDS AND THEY BEGAN TO BLEED.MHW GOT NURSE WHO ASSESSED SITUATION AND TOOK CARE OF PT. PT CLEANED UP AND OBSERVED PEERS PLAYING A GAME THE REMAINDER OF GROUP. PT EXPRESSED NO COMBATIVE BEHAVIORS AT THIS TIME. PT WILL CONTINUE TO ATTEND AND BE ENCOURAGED TO PARTICIPATE TO BEST OF PT ABILITY.
--- NOTE | 2019-06-21 16:53 | NUR ---
DURING HOC A SKIN TEAR WAS NOTED TO LEFT ORDONEZ. AREA CLEANSED AND DRESSING APPLIED. PICTURE TAKEN AND VERGE INCIDENT COMPLETED. DR MARTINEZ, TIRE CLASSIFIER , AND POA UPDATED.
[2019-06-21 19:52] VITALS: BP 122/82
--- NOTE | 2019-06-22 03:58 | NUR ---
P-CONFUSION I-PROVIDE 1:1 WITH THERAPEUTIC INTERVENTIONS. PRESENT REALITY AND REORIENT NEEDED. ENCOURAGE MEDICATION COMPLIANCE AND EDUCATE. MONITOR SLEEP. R-"IS THAT MAN OVER THERE GOING TO HELP ME TO BED?". PT ALERT AND ORIENTED TO SELF, PLEASANTLY CONFUSED. PT CALM AND INTERACTIVE, WATCHED A MOVIE WITH PEERS. PT REFUSED HS DOSE OF HUMALOG AND LANTUS, BSG 155, UNABLE TO EDUCATE DUE TO COGNITION. PT COMPLIANT WITH REMAINING HS MEDICATION PASS WITHOUT DIFFICULTY. PT DENIES SI/HI, HALLUCINATIONS OR PAIN. NO NOTED RESPONDING TO INTERNAL STIMULI. NO PARANOIA/DELUSIONS NOTED. PT ABLE TO VOICE NEEDS, INCONTINENT OF BOWEL AND BLADDER, COMPLIANT WITH HOC. PT RESTING QUIETLY AT THIS TIME, NO SIGNS OR SYMPTOMS OF DISTRESS NOTED. P-CONTINUE TO REORIENT AND PRESENT REALITY DURING INTERACTIONS. PROVIDE 1:1 WITH THERAPEUTIC INTERVENTIONS. ENCOURAGE MEDICATION COMPLIANCE. MAINTAIN Q 15 MIN CHECKS.
--- NOTE | 2019-06-22 05:22 | NUR ---
24 HOUR CHART CHECK COMPLETED.
--- NOTE | 2019-06-22 06:33 | NUR ---
PATIENT OBSERVED ON Q 15 MIN CHECKS TO HAVE SLEPT APPROX 9 HOURS UNINTERRUPTED. NO SIGNS OR SYMPTOMS OF DISTRESS NOTED.
[2019-06-22 07:57] VITALS: BP 133/70
--- NOTE | 2019-06-22 12:04 | NUR ---
AM GROUP/EXERCISE/STORY/ART PT ATTENDED BUT CHOSE NOT TO PARTICIPATE. PT DRINKING A CUP OF COFFEE AND OBSERVING. PT EXPRESSES NO COMBATIVE BEHAVIORS AT THIS TIME. PT WILL CONTINEU TO ATTEND FUTURE GROUP SESSIONS AND PARTICIPATE TO BEST OF PT ABILITY.
[2019-06-22 13:08] LABS: INTERNATIONAL NORM RATIO 3.2 (2.0-3.5)
[2019-06-22 19:53] VITALS: BP 152/53
--- NOTE | 2019-06-23 04:26 | NUR ---
PT RESTING QUIETLY ALL SHIFT, NO SI/HI OR DELUSIONS, CONTINUES A DANIS FOR TRANSFERS, ROTATED SIDE TO SIDE TURNS IN BED THIS SHIFT. MEDICATION COMPLIANT WITHOUT DIFFICULTY. CONTINUE TO MONITOR PER 15 MIN CHECKS
--- NOTE | 2019-06-23 05:25 | NUR ---
PT SLEPT 8+ HOURS 24 HR chart check completed.
[2019-06-23 06:26] LABS: CREATININE 1.53 mg/dL (0.70-1.30)
[2019-06-23 06:42] LABS: BASO # 0.1 10*3/uL (0.0-0.1); BASO % 0.7 % (0.0-1.0); EOS # 0.5 10*3/uL (0.0-0.4); EOS % 6.5 % (1.0-4.0); HEMATOCRIT 32.7 % (42.0-52.0); HEMOGLOBIN 10.2 g/dl (14.0-18.0); LYMPH # 1.3 10*3/uL (1.3-4.4); LYMPH % 17.2 % (27.0-41.0); MEAN CELL VOLUME 95.9 fl (80.0-94.0); MEAN CORPUSCULAR HGB 29.9 pg (27.0-31.0); MEAN CORPUSCULAR HGB CONC 31.2 g/dl (33.0-37.0); MEAN PLATELET VOLUME 12.7 fl (9.6-12.3); MONO # 0.9 10*3/uL (0.1-1.0); MONO % 12.6 % (3.0-9.0); NEUT # 4.6 10*3/uL (2.3-7.9); NEUT % 62.5 % (47.0-73.0); PLATELET COUNT AUTOMATED 128 10*3/uL (130-400); RED BLOOD COUNT 3.41 10*6/uL (4.50-5.90); RED CELL DISTRI WIDTH 14.2 % (0-14.5); WHITE BLOOD COUNT 7.4 10*3/uL (4.8-10.8)
[2019-06-23 07:01] LABS: INTERNATIONAL NORM RATIO 2.9 (2.0-3.5)
--- NOTE | 2019-06-23 07:27 | NUR ---
DADA GARCIA [id number] Please refer to the physician's history and physical for past medical history, comorbid conditions, and allergies. Diagnosis: INTERMITTENT EXPLOSIVE DISORDER Ervin Score: 11,HIGH RISK WOUND DESCRIPTIONS: ( revisit ) Wound Number: 1 Location of the wound: left heel Type of wound: unstagaeble Thickness: Full Size: 3.2cm x 4.8cm x <0.1cm Tunneling: none Undermining: none Sinus Tract: none Presence of Exudate: none Amount: none Color: Brown Odor: None Periwound Skin Appearance: Scar Wound edges: approximated Pain (associated with wound): none at time of assessment Wound Number: 2 Location of the wound: left 3rd toe Thickness: Partial Size: 0.2cm x 0.2cm x <0.1cm Tunneling: none Undermining: none Sinus Tract: none Presence of Exudate: none Amount: None Color: Red Odor: None Periwound Skin Appearance: Erythema Wound edges: approximated Pain (associated with wound): none at time of assessment Wound Number: 3 Location of the wound: left 3rd toe Thickness: Partial Size: 0.3cm x 0.3cm x <0.1cm Tunneling: none Undermining: none Sinus Tract: none Presence of Exudate: none Amount: None Color: Red, brown Odor: None Periwound Skin Appearance: Erythema Wound edges: approximated Pain (associated with wound): none at time of assessment Wound Number: 4 Location of the wound: right heel Type of wound: stage 2 Thickness: Partial Size: 0.5cm x 0.4cm x 0.1cm Tunneling: none Undermining: none Sinus Tract: none Presence of Exudate: none Amount: none Color: Red Odor: None Periwound Skin Appearance: Scar Wound edges: approximated Pain (associated with wound): none at time of assessment Wound Number: 5 Location of the wound: right hallux Thickness: Partial Size: 0.4cm x 0.2cm x <0.1cm Tunneling: none Undermining: none Sinus Tract: none Presence of Exudate: none Amount: None Color: Red Odor: None Periwound Skin Appearance: Erythema Wound edges: approximated Pain (associated with wound): none at time of assessment Wound Number: 6 Location of the wound: right great toe Thickness: Partial Size: 0.5cm x 1.1cm x <0.1cm Tunneling: none Undermining: none Sinus Tract: none Presence of Exudate: Serosanguineous Amount: Light Color: Red Odor: None Periwound Skin Appearance: Erythema Wound edges: approximated Pain (associated with wound): none at time of assessment Wound Number: 7 Location of the wound: right 2nd toe Thickness: Partial Size: 0.4cm x 0.4cm x <0.1cm Tunneling: none Undermining: none Sinus Tract: none Presence of Exudate: none Amount: none Color: Red Odor: None Periwound Skin Appearance: Erythema Wound edges: approximated Pain (associated with wound): none at time of assessment Wound Number:8 coccyx is red and blanchable at time of assessment. No open areas noted at time of assessment. No drainage noted at time of assessment. Wound Number: 9 right forearm no open areas noted at time of assessment. No drainage noted at time of assessment. Wound Number 10: left elbow no open areas noted at time of assessment. No drainage noted at time of assessment. right 5th toe is red and blanchable at time of assesssment. No open areas noted at time of assessment. no drainage noted at time of assessment. Left posterior lower extremity indent scar noted. No draiange at time of assessment. No redness at time of assessment. Wound Number: 11 Location of the wound: left castañeda Type of wound: skin tear Thickness: Partial Size: 0.5cm x 0.5cm x <0.1cm Tunneling: none Undermining: none Sinus Tract: none Presence of Exudate: Serous sanguineous Amount: Light Color: Red Odor: None Periwound Skin Appearance: Normal Wound edges: approximated Pain (associated with wound): none at time of assessment How does patient state this happened? pt unable to state how this happened Surface the patient is resting on: Proform SKIN PREVENTION RECOMMENDATION: 1. Pressure redistribution support surface as appropriate 2. Elevate heels 3. Remove boots/TEDS every shift and reapply 4. Head of bed 30 degrees as tolerated 5. Assess nutrition and hydration 6. Manage moisture 7. Avoid the use of containment devices while in bed 8. Use absorptive products on surfaces limit layers of linens on bed 9. Turn and reposition every 1-2 hours in bed and every 1 hour in chair as tolerated 10. Weight shifts every 15 minutes while up in chair 11. Offloading with pillows or device to keep heels elevated off bed 12. Monitor skin at least every shift 13. Inspect under medical devices twice a day WOUND TREATMENT RECOMMENDATIONS: Podiatry is already on consult. Continue wheelchair cushion when oob Continue heel raiser pro boots to bilateral feet while in bed or gerichair. Clarify skin tear guidelines to left castañeda: cleanse left castañeda with nss and apply sureprep around the wound hydrogel to wound bed and cover with optifoam gentle every 2 days and prn for soiling. Continue unstageable guidelines to left heel, left 3rd toe and left 2nd toe Continue dressing change to coccyx. D/C skin tear guidelines to left elbow and right forearm Continue unstageable guidelines to right heel, right 2nd toe, right great toe, and right hallux.
--- NOTE | 2019-06-23 08:00 | NUR ---
Treatment Plan meeting was held with SEDA Moy, RN, AT, FADY-S and Oil Well Services Supervisor in attendance. Plan for discharge Sun/ with return to [place].
[2019-06-23 08:28] VITALS: BP 136/62
--- NOTE | 2019-06-23 10:09 | NUR ---
Deena GUY notified of wound care recommendations.
--- NOTE | 2019-06-23 11:44 | NUR ---
NO AM GROUP
--- NOTE | 2019-06-23 15:52 | NUR ---
PM GROUP PT WAS PRESENT FOR AFTERNOON GROUP THERAPY BUT DID NOT PARTICIPATE. PT NAPPED ON AND OFF.
[2019-06-23 19:39] VITALS: BP 122/64
--- NOTE | 2019-06-23 20:57 | NUR ---
EVENING GROUP/MLK DISCUSSION PT ATTENDED BUT UNABLE TO PARTICIPATED DUE TO LEVELS OF CONFUSION AND AGITATION. PT EXPRESSED NO COMBATIVE BEHAVIORS BUT TONE OF VOICE AND COMMENTS INDICATED SOME AGITATION. THIS STAFF REDIRECTING PT AT THIS TIME. PT WILL CONTINUE TOP ATTEND FUTURE RGOUP SESSIONS AND PARTICIPATE TO BEST OF ABILITY.
--- NOTE | 2019-06-23 22:47 | NUR ---
P: IRRATIBLE, RESTLESS, WANTING TO LEAVE SO HE COULD GET HIS CAR AND GO HOME. REFUSED SNACK I: STAFF APPROACHED PT TO REDIRECT ABLE, PT DISTRACTED FROM MOOD WITH ACTIVITIES. OFFERED SNACKS, DRINKS, REPOSITIONING, TRANSFER TO BED R: PT WAS ABLE TO BE REDIRECTED TO PLEASANT AND COOPERATIVE MOOD WITH STAFF INTERACTION. REDIRECTED TO TAKE SNACK AND DRINK EVENING BEVERAGE, PT RETURNED TO PLEASANT WITH HOC AND COOPERATIVE WHEN TRANSFERED TO BED AND GIVEN HOC. P: MONITOR MOODS, BEHAVIORS, 15 MIN CHECKS, EFFECTIVENESS OF MEDICAITONS. SKIN INTEGRITY. NO SI/HI OR DELUSIONS NOTED. PT CONTINUES WITH ST/LT MEMORY DEFICIT
--- NOTE | 2019-06-24 06:38 | NUR ---
PT SLEPT 7+ HOURS, 24 HR chart check completed.
[2019-06-24 06:50] LABS: INTERNATIONAL NORM RATIO 3.1 (2.0-3.5)
[2019-06-24 07:40] VITALS: BP 136/76
--- NOTE | 2019-06-24 08:00 | NUR ---
Treatment Plan meeting was held with Dr. Richards, SEDA Moy, RN, AT, COMMERCIAL DESIGNER-S and Jackhammer Splitter Operator in attendance. Plan for discharge Sunday with return to [facility].
--- NOTE | 2019-06-24 08:43 | NUR ---
Deena GUY notified of wound care recommendations.
--- NOTE | 2019-06-24 09:00 | NUR ---
PATIENT DROWSY, STERNAL RUB TO AROUSE. PATIENT SNORRING. VITALS: 118/57, 97.1, 20, 113, O2 SAT 100RA BLOOD SUGAR 17, CHECKED TWICE. HAYDEN SAINI CNP NOTIFIED. NEW ORDERS IN PLACE.
--- NOTE | 2019-06-24 09:02 | NUR ---
HAYDEN SAINI CNP ON UNIT. PATIENT RECIEVED GLUCAGON 1MG IM TO LEFT DELTOID. IV STARTED IN LEFT AC, 22 GAUGE. VERBAL ORDER DEXTROSE 50% 12.5MG IV NOW. BLOOD SUGAR RECHECKED 128 AT 0915. ANOTHER VERBAL ORDER DEXTROSE 50% 12.5MG IV NOW. NEW ORDER HEAT CT STAT, PATIENT OFF UNIT WITH NURSING STAFF AND HAYDEN SAINI CNP OF UNIT AT 0919.
--- NOTE | 2019-06-24 09:27 | NUR ---
PATIENT BACK ON UNIT WITH STAFF AND SECURITY. BLOOD SUGAR RECHECKED 148. BREAKFAST ORDERED. PATIENT MORE ALERT, ANSWERING SIMPLE QUESTIONS WITH PROMPTING. EATING APPLESAUCE FOLLOWING VERBAL DIRECTION WITH STAFF ASSISTANCE.
[2019-06-24 10:22] LABS: HEMATOCRIT 33.4 % (42.0-52.0); HEMOGLOBIN 10.5 g/dl (14.0-18.0); MEAN CELL VOLUME 94.1 fl (80.0-94.0); MEAN CORPUSCULAR HGB 29.6 pg (27.0-31.0); MEAN CORPUSCULAR HGB CONC 31.4 g/dl (33.0-37.0); MEAN PLATELET VOLUME 12.7 fl (9.6-12.3); PLATELET COUNT AUTOMATED 123 10*3/uL (130-400); RED BLOOD COUNT 3.55 10*6/uL (4.50-5.90); RED CELL DISTRI WIDTH 14.2 % (0-14.5); WHITE BLOOD COUNT 20.6 10*3/uL (4.8-10.8)
[2019-06-24 10:51] LABS: ACANTHOCYTES MODERATE; PLATELET SUFFICIENCY LOW (NORMAL); TOTAL CELLS COUNTED 100 #CELLS
[2019-06-24 11:06] LABS: CREATININE 1.78 mg/dL (0.70-1.30); POTASSIUM 4.1 mmol/L (3.5-5.1)
--- NOTE | 2019-06-24 11:46 | NUR ---
AM GROUP/WORRY BEADS PT DID NOT ATTEND MORNING GROUP THERAPY. PT WAS IN BED RESTING.
--- NOTE | 2019-06-24 11:55 | NUR ---
HAYDEN SAINI, SONALI NOTIFIED OF CRITICAL LABS: LACTIC ACID 2.2 AND TROPONIN 0.059.
[2019-06-24 11:58] LABS: BILIRUBIN NEGATIVE (NEGATIVE); BLOOD NEGATIVE (NEGATIVE); CLARITY CLEAR (CLEAR); COLOR YELLOW (YELLOW); GLUCOSE NEGATIVE (NEGATIVE); KETONE NEGATIVE (NEGATIVE); LEUKO ESTERASE 1+ (NEGATIVE); NITRITE NEGATIVE (NEGATIVE); UROBILINOGEN 0.2 E.U./dl (0.2-1.0)
[2019-06-24 12:11] LABS: MUCOUS TRACE; RBC 0-2 rbc/hpf (0-2)
[2019-06-24] MEDS ORDERED: COUMADIN4 M2 PO (12:41)
[2019-06-24] MEDS ORDERED: DEPAKOTE250 MG PO (13:36)
[2019-06-24] MEDS ORDERED: DEPAKOTE500 MG PO (13:37)
[2019-06-24] MEDS ORDERED: NAMENDA5 M1 PO (13:49)
[2019-06-24] MEDS ORDERED: NAMENDA10 MG PO (13:50)
[2019-06-24] MEDS ORDERED: EXEL13.31 T (13:51)
--- NOTE | 2019-06-24 14:33 | NUR ---
Left Message for Criss in admissions at [facility] to notify of transfer to Medical Floor.
--- NOTE | 2019-06-24 15:15 | NUR ---
Met with pt's Larisa and pt's daughter Demetria this afternoon prior to pt's transfer to the medical floor. Provided support as Larisa and Demetria expressed concern about pt's status. Spoke with RN to learn additional information and relayed this information to pt's family as they sat in this conventional mortgage underwriter's office while they were waiting to see the pt.
--- NOTE | 2019-06-24 15:17 | NUR ---
Patient was disharged today to [facility] medical floor. Tentative plan was for pt to discharge tomorrow from [facility] returning to [place] where pt is LTC. While at [facility], pt's behaviors improved. Pt was pleasant and cooperative prior to his discharge. Mild confusion and memory impairment continued to be present.
== END 2019-06-24 14:30 | disposition short-term general hospital (02) | DRG 883 ==
LOC: 3N 15:11
PROVIDERS: Family Medicine; Internal Medicine; Nurse Practitioner Women's Health; Registered Nurse; ADMIT Psychiatry & Neurology Psychiatry
DX: F63.81 Intermittent explosive disorder (principal); I50.42 Chronic combined systolic (congestive) and diastolic (congestive) heart failure; I48.20 Chronic atrial fibrillation, unspecified; I82.432 Acute embolism and thrombosis of left popliteal vein; I13.0 Hypertensive heart and chronic kidney disease with heart failure and stage 1 through stage 4 chronic kidney disease, or unspecified chronic kidney disease; L97.909 Non-pressure chronic ulcer of unspecified part of unspecified lower leg with unspecified severity; D72.829 Elevated white blood cell count, unspecified; E11.59 Type 2 diabetes mellitus with other circulatory complications; E78.5 Hyperlipidemia, unspecified; D63.8 Anemia in other chronic diseases classified elsewhere; N18.9 Chronic kidney disease, unspecified; L89.629 Pressure ulcer of left heel, unspecified stage; E11.22 Type 2 diabetes mellitus with diabetic chronic kidney disease; G30.9 Alzheimer's disease, unspecified; F02.80 Dementia in other diseases classified elsewhere, unspecified severity, without behavioral disturbance, psychotic disturbance, mood disturbance, and anxiety; E03.9 Hypothyroidism, unspecified; I25.10 Atherosclerotic heart disease of native coronary artery without angina pectoris; F41.1 Generalized anxiety disorder; E11.51 Type 2 diabetes mellitus with diabetic peripheral angiopathy without gangrene; J44.9 Chronic obstructive pulmonary disease, unspecified; E11.40 Type 2 diabetes mellitus with diabetic neuropathy, unspecified; G47.00 Insomnia, unspecified; K21.9 Gastro-esophageal reflux disease without esophagitis; K59.00 Constipation, unspecified; Z79.4 Long term (current) use of insulin; Z82.49 Family history of ischemic heart disease and other diseases of the circulatory system; Z84.89 Family history of other specified conditions; Z79.899 Other long term (current) drug therapy; Z79.02 Long term (current) use of antithrombotics/antiplatelets

== ENCOUNTER 2019-06-24 14:35 | Inpatient (IN) | payer MEDICARE, MEDICAID ==
[~2019-06-24] VITALS: Ht 177.8 cm; Wt 68.9 kg
--- NOTE | 2019-06-24 14:30 | NUR ---
A 88, admitted to 5E, under the services of DARIAN Ortiz DO with a diagnosis of PNEUMONIA. Chief complaint is INCREASED CONFUSION ON BHU, HYPOGLYCEMIA. Patient arrived via OTHER from [place]. Monitor applied. Initial assessment completed. Vital signs taken and recorded. DARIAN ORTIZ DO notified of admission to the unit. Orders received. See assessment for past medical history, medications and allergies. Patient and/or family oriented to unit. [address] visitation policy reviewed. Clothing/patient valuable form completed. DOC DE LA CRUZ
[~2019-06-24 14:35] MED LIST: ACIDOPHILUS1 EACH PO; ANTI-DIARRHEAL2 MG PO; COUMADIN4 M2 PO; DEPAKOTE250 MG PO; DEPAKOTE500 MG PO; ELIQUIS2.5 M1 PO; EXEL13.31 T; FUROSEMIDE40 MG PO; GLUCOSE GEL38 GM PO; HUMALOG100 UNIT/2 SQ; Hydralazine Hyd25 MG PO; Ipratropium Brom3 ML INH; LANTUS SOL100 UNIT/1 SQ; LEVOTHYROXINE50 MCG PO; LIPITOR20 MG PO; MILK OF MA400 MG/5 M PO; MULTIVITAMINS1 EAC5 PO; NAMENDA10 MG PO; NAMENDA5 M1 PO; OYSTER SHELL C500 M4 PO; PEPCID20 MG PO; PLAVIX75 M1 PO; POTASSIUM CHLO20 ME3 PO; RISPERDAL0.25 MG PO; TYLENOL325 M2 PO; VENTOLIN 02.5 MG/3 M INH; ZINC SULFATE220 M2 PO
--- NOTE | 2019-06-24 15:30 | NUR ---
Per [facility], patients family was wanting the patient to be transfered to [facility], however their are no beds available. Patient was set to [place] [place] tomorrow 06/24/2019. -VIANCA Trujillo
[2019-06-24 16:00] VITALS: BP 156/74
--- NOTE | 2019-06-24 16:25 | NUR ---
HAYDEN SAINI NOTIFIED OF UPDATED MED REC.
[2019-06-24 18:27] LABS: BILIRUBIN NEGATIVE (NEGATIVE); BLOOD NEGATIVE (NEGATIVE); CLARITY CLEAR (CLEAR); COLOR YELLOW (YELLOW); GLUCOSE NEGATIVE (NEGATIVE); KETONE NEGATIVE (NEGATIVE)
[2019-06-24 18:28] LABS: LEUKO ESTERASE TRACE (NEGATIVE); NITRITE NEGATIVE (NEGATIVE); UROBILINOGEN 0.2 E.U./dl (0.2-1.0)
[2019-06-24 20:00] VITALS: BP 154/53
[2019-06-25] VITALS: BP 140/54
--- NOTE | 2019-06-25 | NUR ---
AWAKE, RESTLESS. REPEATEDLY CLIMBING OOB. ASSISTED TO BED AND POSITIONED FOR COMFORT. RESPIRATIONS EASY. LUNGS DIMINISHED. PULSE OX 94% RA. IV FLUIDS INFUSING PER ORDER. CALL LIGHT WITHIN REACH. BED ALARM MAINTAINED
--- NOTE | 2019-06-25 00:20 | NUR ---
CONTINUES TO CLIMB OOB. ASSISTED TO BRIA-CHAIR AND BROUGHT TO NURSES STATION
--- NOTE | 2019-06-25 03:00 | NUR ---
REMAINS IN BRIA-CHAIR AT NURSES STATION
--- NOTE | 2019-06-25 03:00 | NUR ---
24 HR chart check completed.
--- NOTE | 2019-06-25 05:00 | NUR ---
RETURNED TO BED. BATHED AND POSITIONED FOR COMFORT. BED ALARM APPLIED FOR SAFETY
--- NOTE | 2019-06-25 06:18 | NUR ---
JOSEDADA Gilmar [id number] Please refer to the physician's history and physical for past medical history, comorbid conditions, and allergies. Diagnosis: PNEUMONIA Ervin Score: 13,MODERATE RISK WOUND DESCRIPTIONS: Wound Number: 1 Location of the wound: left heel Type of wound: unstageable Thickness: Full Size: 3.5cm x 4.5cm x <0.1cm Tunneling: none Undermining: none Sinus Tract: none Presence of Exudate: none Amount: None Color: Brown, yellow Odor: None Periwound Skin Appearance: Scar Wound edges: approximated Pain (associated with wound): none at time of assessment How does patient state this happened? pt unable to state how this happened Wound Number: 2 Location of the wound: left 3rd toe Thickness: Partial Size: 0.2cm x 0.1cm x <0.1cm Tunneling: none Undermining: none Sinus Tract: none Presence of Exudate: none Amount: None Color: Red Odor: None Periwound Skin Appearance: Erythema Wound edges: approximated Pain (associated with wound): none at time of assessment How does patient state this happened? pt unable to state how this happened Wound Number: 3 Location of the wound: left 2nd toe lateral Thickness: Partial Size: 0.2cm x 0.3cm x <0.1cm Tunneling: none Undermining: none Sinus Tract: none Presence of Exudate: none Amount: None Color: Red Odor: None Periwound Skin Appearance: Erythema Wound edges: approximated Pain (associated with wound): none at time of assessment How does patient state this happened? pt unable to state how this happened Wound Number: 4 Location of the wound: right heel Thickness: unstageable Size: 1.5cm x 1.5cm x <0.1cm Tunneling: none Undermining: none Sinus Tract: none Presence of Exudate: none Amount: None Color: brown, yellow Odor: None Periwound Skin Appearance: Erythema Wound edges: approximated Pain (associated with wound): none at time of assessment How does patient state this happened? pt unable to state how this happened Wound Number: 5 Location of the wound: right hallux Thickness: Partial Size: 0.4cm x 0.2cm x <0.1cm Tunneling: none Undermining: none Sinus Tract: none Presence of Exudate: none Amount: None Color: red Odor: None Periwound Skin Appearance: Erythema Wound edges: approximated Pain (associated with wound): none at time of assessment How does patient state this happened? pt unable to state how this happened Wound Number: 6 Location of the wound: right great toe Thickness: Partial Size: 0.6cm x 1.4cm x <0.1cm Tunneling: none Undermining: none Sinus Tract: none Presence of Exudate: none Amount: None Color: red Odor: None Periwound Skin Appearance: Erythema Wound edges: approximated Pain (associated with wound): none at time of assessment How does patient state this happened? pt unable to state how this happened Wound Number: 7 Location of the wound: right 2nd toe Thickness: Partial Size: 0.6cm x 0.3cm x <0.1cm Tunneling: none Undermining: none Sinus Tract: none Presence of Exudate: none Amount: None Color: red Odor: None Periwound Skin Appearance: Erythema Wound edges: approximated Pain (associated with wound): none at time of assessment How does patient state this happened? pt unable to state how this happened Wound Number: 8 Coccyx is red and blanchable at time of assessment. No open areas noted at time of assessment. No drainage noted at time of assessment. Wound Number: 9 right forearm scar tissue noted at time of assessment. no drainage noted at time of assessment. Wound Number: 10 left elbow scar tissue noted at time of assessment. No drainage noted at time of assessment. Wound Number: 11 Location of the wound: left castañeda Type of Wound: Skin tear Thickness: Partial Size: 1.0cm x 0.5cm x 0.1cm Tunneling: none Undermining: none Sinus Tract: none Presence of Exudate: Light Amount: Serosanguineous Color: red Odor: None Periwound Skin Appearance: Erythema Wound edges: approximated Pain (associated with wound): none at time of assessment How does patient state this happened? pt unable to state how this happened\ Wound Number: 12 Location of the wound: left 2nd toe medial aspect Thickness: Partial Size: 0.4cm x 0.3cm x 0.1cm Tunneling: none Undermining: none Sinus Tract: none Presence of Exudate: none Amount: none Color: red Odor: None Periwound Skin Appearance: Erythema Wound edges: approximated Pain (associated with wound): none at time of assessment How does patient state this happened? pt unable to state how this happened Wound Number: 13 Location of the wound: left 4th toe distal Type of wound: DTI Size: 0.4cm x 0.2cm x <0.1cm Tunneling: none Undermining: none Sinus Tract: none Presence of Exudate: none Amount: none Color: red, purple Odor: None Periwound Skin Appearance: Erythema Wound edges: approximated Pain (associated with wound): none at time of assessment How does patient state this happened? pt unable to state how this happened Wound Number: 14 Location of the wound: left 5th toe Type of wound: DTI Size: 0.4cm x 0.2cm x <0.1cm Tunneling: none Undermining: none Sinus Tract: none Presence of Exudate: none Amount: none Color: red, purple Odor: None Periwound Skin Appearance: Erythema Wound edges: approximated Pain (associated with wound): none at time of assessment How does patient state this happened? pt unable to state how this happened Left posterior lower extremity indent scar noted. No drainage at time of assessment. No redness noted at time of assessment. Right 5th toe is red and blanchable at time of assessment. No open areas noted at time of assessment. Surface the patient is resting on: Position Pro SKIN PREVENTION RECOMMENDATION: 1. Pressure redistribution support surface as appropriate 2. Elevate heels 3. Remove boots/TEDS every shift and reapply 4. Head of bed 30 degrees as tolerated 5. Assess nutrition and hydration 6. Manage moisture 7. Avoid the use of containment devices while in bed 8. Use absorptive products on surfaces limit layers of linens on bed 9. Turn and reposition every 1-2 hours in bed and every 1 hour in chair as tolerated 10. Weight shifts every 15 minutes while up in chair 11. Offloading with pillows or device to keep heels elevated off bed 12. Monitor skin at least every shift 13. Inspect under medical devices twice a day WOUND TREATMENT RECOMMENDATIONS: Podiatry is already on consult.. Please review arterial studies from 06/17/19 Heel raiser pro boots to bilateral feet while in bed. Wheelchair cushion when oob Skin tear guidelines: Cleanse left castañeda with nss and apply sureprep around the wound hydrogel to wound bed and cover with optifoam gentle every 2 days and prn for soiling. Dressing change: Apply betadine to left heel, left 3rd toe, left 2nd toe lateral, left 2nd toe medial, left 4th toe proximal, left 4th toe distal, left 5th toe, right hallux, right great toe, right 2nd toe and right heel and cover with dsd daily and prn for soiling. Cleanse coccyx with soap and water and apply hydraguard every shift and prn for soiling D/C unstageable guidelines to right heel, right 2nd toe and right great toe D/C skin tear guidelines to left castañeda D/C unstageable guideline to left heel, left 3rd toe and 2nd
--- NOTE | 2019-06-25 07:00 | NUR ---
WOUNDS PHOTOS REFUSED BY PT PER PM RN AFTER MULTIPLE ATTEMPTS AND PT'S REFUSAL.
--- NOTE | 2019-06-25 07:30 | NUR ---
VITAL SIGNS STABLE. A&O X1. CAPILLARY REFILL <3 SEC, SKIN TURGOR NON-TENTING. SKIN WARM AND DRY. PT UNCOOPERATIVE AND COMBATIVE. + PERIPHERAL PULSES. UNABLE TO ASSESS PAIN USING PAIN SCALE, BUT NO S/S OF DISCOMFORT. HEART SOUNDS NORMAL, RATE 60 REGULAR AND WEAK. LUNG SOUNDS DIMINISHED THROUGHOUT, OTHERWISE CLEAR, PO2 100% ON ROOM AIR. BOWEL SOUNDS X4, ABDOMEN SOFT, NON DISTENDED, NON TENDER. IV SITE LEFT ANTECUBITAL DRY AND INTACT, NO S/S OF INFECTION. NO OTHER COMPLAINTS AT THIS TIME, WILL CONTINUE TO MONITOR. LINO DENT [facility]
--- NOTE | 2019-06-25 07:30 | NUR ---
Patient resting quietly with no c/o discomfort. Respirations easy and regular. Vital signs stable. No overt distress. DOC DE LA CRUZ
--- NOTE | 2019-06-25 07:44 | NUR ---
Late Note: Per [facility], patients family was wanting the patient to be transfered to [facility], however there are no beds available. Patient was set to discharge to [facility] today. -VIANCA Trujillo
[2019-06-25 08:00] VITALS: BP 164/96
--- NOTE | 2019-06-25 08:45 | NUR ---
DR RIDDLE NOTIFIED OF CONSULT.
--- NOTE | 2019-06-25 09:54 | NUR ---
SPEECH PATHOLOGY Clinical swallowing evaluation completed as per orders due to questionable aspiration. Patient's medical history is significant for intermittent explosive disorder, Alzheimer's disease, leukocytosis, pneumonia, chronic a-fib, COPD, CAD, GERD, HTN, DM. He had been on BHU but due to change in mental status and hypoglycemia, he was transferred to medical floor. He receives a regular diet and thin liquid. Patient was seen during breakfast meal with a variety of liquid and solid food items. His son was present and reported that he has not noted any difficulty in his father chewing or swallowing and stated that his dad has been displaying a good appetite. Patient was alert but irritable during assessment. He was able to feed himself. He displayed no oral or pharyngeal difficulty. Good intake was noted and he displayed a timely swallow with no cough, throat clearing or oral residue. Recommend he remain on regular diet and thin liquid. No follow up is warranted at this time. Results and j carlos. were shared with patient's son and nurse and they verbalized understanding. Refer to report in [facility] for further information. Thank you for this referral. CLAU LARKIN [facility] PROGRAM COORDINATOR
[2019-06-25 10:37] VITALS: BP 147/63
--- NOTE | 2019-06-25 10:45 | NUR ---
Wound care recommendations given to nurse caring for patient.
[2019-06-25 11:04] LABS: BASO % 0.3 % (0.0-1.0); EOS # 0.3 10*3/uL (0.0-0.4); EOS % 3.7 % (1.0-4.0); HEMATOCRIT 34.2 % (42.0-52.0); HEMOGLOBIN 10.6 g/dl (14.0-18.0); LYMPH # 1.1 10*3/uL (1.3-4.4); LYMPH % 13.8 % (27.0-41.0); MEAN CELL VOLUME 93.7 fl (80.0-94.0); MEAN PLATELET VOLUME 12.6 fl (9.6-12.3); MONO # 0.7 10*3/uL (0.1-1.0); MONO % 8.7 % (3.0-9.0); NEUT # 5.7 10*3/uL (2.3-7.9); NEUT % 73.1 % (47.0-73.0); PLATELET COUNT AUTOMATED 122 10*3/uL (130-400); RED BLOOD COUNT 3.65 10*6/uL (4.50-5.90); RED CELL DISTRI WIDTH 14.2 % (0-14.5); WHITE BLOOD COUNT 7.8 10*3/uL (4.8-10.8)
[2019-06-25 11:17] LABS: INTERNATIONAL NORM RATIO 4.3 (2.0-3.5)
--- NOTE | 2019-06-25 11:39 | NUR ---
Contact information for Cory Vásquez, .
[2019-06-25 11:48] LABS: ALBUMIN 2.9 gm/dl (3.1-4.5); CREATININE 1.51 mg/dL (0.70-1.30); PHOSPHOROUS 3.5 mg/dL (2.5-4.9); POTASSIUM 4.2 mmol/L (3.5-5.1); TOTAL PROTEIN 6.4 gm/dL (6.4-8.2)
[2019-06-25 12:13] VITALS: BP 130/60
--- NOTE | 2019-06-25 12:14 | NUR ---
PT SITTING UP EATING LUNCH. SON IS WITH PT. WILL CONTINUE TO MONITOR. [facility]
[2019-06-25 13:30] LABS: ABG BASE EXCESS 1.4 mmol/L (-2.0-2.0); ARTERIAL BLOOD GAS PH 7.451 (7.35-7.45)
--- NOTE | 2019-06-25 14:41 | NUR ---
LAW FIRM RECEPTIONIST spoke with Cody about this patient. Per Didi, when patient was in SBHU she was told he was a Zeina Lift, however, when she spoke with RN on this floor, they were able to get patient up at bedside and into a chair. Carolee stated she is going to contact Cory Duvall to get patients status. LAW FIRM RECEPTIONIST provided Carolee with the contact information to Cory Duvall. -VIANCA Trujillo
--- NOTE | 2019-06-25 15:30 | NUR ---
OT NOTE Occupational therapy orders received for an evaluation on floor five. Patient was on SB from 06/15/19 to 06/24/19. While on BHU, OT/PT discussed with nursing that patient is dependent for all care and is daiana lifted at baseline, OT screening completed and discharged orders. A new order was received when patient was transferred to the medical floor on 06/24/19. Per discussion with nursing, patient was trying to "climb out of bed" and performed a stand-pivot into the chair. Per discussion with Cory Duvall, patient is daiana lifted at baseline due to decreased functional ability and B/L LE wounds. Following discussion with wound care nurse, there are further concerns for injury of B/L LEs due to poor circulation and LE wounds. Discussed with 5th floor nurse to continue daiana lifting for safety purposes. No further OT indicated at this time due to patient's need to be daiana lifted, safety concerns for LE, and prior level of function. Thank you. Sherry Fabian, OTR/L
--- NOTE | 2019-06-25 15:56 | NUR ---
PHYSICAL THERAPY Pt was on BHU 06/15- he was screend but not picked up by PT as per staff OOB with daiana at facility and was nonambulatory pt then transfered to medical floor 06/24 due to low blood sugar Eval received per nsg pt attempting to get OOB and SPT into [facility]. Spent approx 45 minutes to 1 hour speaking with Nurse Crow from [employer], [facility] staff, Case Mangagement and Marguerite from wound care at [facility] Per Cory Edwards staff was a daiana due to LE heel ulcer/wounds, OOB in tilt back chair. Per Marguerite wound care nurse concerns for further injury of LE's due to poor circulation and opening up L heel ulcer. Due to daiana lift prior to admit at [place], concerns for futher injury to LE's cont to recomend daiana lift for OOB did discuss with 5th floor nurse Shagufta who has pt presently to use daiana for in/out of bed Will disconinue PT at this time, thank you Carolee Greer PT
[2019-06-25 16:00] VITALS: BP 155/80
--- NOTE | 2019-06-25 19:20 | NUR ---
FACILITY NURSE REPORTED TO THIS NURSE THAT PATIENT HAS HIT HIS LEFT ELBOW OFF THE SIDERAIL TO HIS BED AND NOW HAS A SKIN TEAR. DR. GALLAGHER NOTIFIED.
[2019-06-25 20:00] VITALS: BP 149/68
[2019-06-26] VITALS: BP 147/79
--- NOTE | 2019-06-26 02:30 | NUR ---
PATIENT WAS FOUND TO HAVE A BLEEDING SKIN TEAR LEFT THIGH. NEW ORDERS FOR DRESSING CHANGES RECEIVED. NURSING ROSE GRADER UPDATED.
--- NOTE | 2019-06-26 03:10 | NUR ---
NURSING TOOLSMITH NOTIFIED OF NEW SKIN TEARS.
--- NOTE | 2019-06-26 07:28 | NUR ---
24 HR chart check completed.
[2019-06-26 08:00] VITALS: BP 166/82
--- NOTE | 2019-06-26 08:40 | NUR ---
DADA GARCIA [id number] Please refer to the physician's history and physical for past medical history, comorbid conditions, and allergies. Diagnosis: PNEUMONIA Ervin Score: 13,MODERATE RISK WOUND DESCRIPTIONS: ( new skin impairment ) Wound Number: 15 Location of the wound: left elbow Type of wound: skin tear Thickness: Partial Size: 1.2cm x 1.1cm x0.1cm Tunneling: none Undermining: none Sinus Tract: none Presence of Exudate: Serosanguineous Amount: Light Color: Red Odor: None Periwound Skin Appearance: Normal Wound edges: approxiamted Pain (associated with wound): none at time of assessment Wound Number: 16 Location of the wound: left thigh above knee Type of wound: skin tear Thickness: Partial Size: 1.0cm x 0.7cm x 0.1cm Tunneling: none Undermining: none Sinus Tract: none Presence of Exudate: Serosanguineous Amount: Light Color: Red Odor: None Periwound Skin Appearance: Normal Wound edges: approximated Pain (associated with wound): none at time of assessment How does patient state this happened? pt unable to state how this happened Surface the patient is resting on: Position Pro SKIN PREVENTION RECOMMENDATION: 1. Pressure redistribution support surface as appropriate 2. Elevate heels 3. Remove boots/TEDS every shift and reapply 4. Head of bed 30 degrees as tolerated 5. Assess nutrition and hydration 6. Manage moisture 7. Avoid the use of containment devices while in bed 8. Use absorptive products on surfaces limit layers of linens on bed 9. Turn and reposition every 1-2 hours in bed and every 1 hour in chair as tolerated 10. Weight shifts every 15 minutes while up in chair 11. Offloading with pillows or device to keep heels elevated off bed 12. Monitor skin at least every shift 13. Inspect under medical devices twice a day WOUND TREATMENT RECOMMENDATIONS: Skin tear guidelines: Cleanse left thigh below knee and left elbow with nss and apply sureprep around the wound hydrogel to wound bed and cover with optifoam gentle every 2 days and prn for soiling
[2019-06-26 09:13] LABS: INTERNATIONAL NORM RATIO 3.6 (2.0-3.5)
--- NOTE | 2019-06-26 09:31 | NUR ---
NOTIFIED OF PT'S TEMP 96.4
--- NOTE | 2019-06-26 11:23 | NUR ---
Dr. Knight notified of wound care recommendations.
[2019-06-26 12:00] VITALS: BP 149/79
[2019-06-26 16:00] VITALS: BP 127/45
[2019-06-26 20:00] VITALS: BP 134/62
[2019-06-27] VITALS: BP 109/54
[2019-06-27 06:13] LABS: CREATININE 1.37 mg/dL (0.70-1.30); POTASSIUM 4.4 mmol/L (3.5-5.1)
--- NOTE | 2019-06-27 06:39 | NUR ---
SPOKE WITH DR MOBLEY REGARDING CRITICAL GLUCOSE VALUE OF 44. ORDERS RECIEVED.
[2019-06-27 06:51] LABS: INTERNATIONAL NORM RATIO 2.2 (2.0-3.5)
[2019-06-27 08:00] VITALS: BP 131/63
--- NOTE | 2019-06-27 09:28 | NUR ---
Deena GUY notified of wound care recommendations.
--- NOTE | 2019-06-27 09:45 | NUR ---
Nutritional Support Services Note: Recommend Glucerna OS po TID with meals. Appetite flucuates. Skin tears noted. Will follow as needed. Annika Richardson
[2019-06-27 12:00] VITALS: BP 127/65
[2019-06-27] MEDS ORDERED: RISPERIDONE M-0.5 MG BC (12:22)
[2019-06-27] MEDS ORDERED: COUMADIN3 M1 PO (12:22)
[2019-06-27] MEDS ORDERED: ZITHROMAX500 MG PO (12:24)
--- NOTE | 2019-06-27 13:30 | NUR ---
Spoke with pt daughter and medical poa Elisa Marquez and notified her that pt will be dc today to [facility].
--- NOTE | 2019-06-27 13:44 | NUR ---
[employer] received notice of patient discharge. [employer] spoke with CRICKET Mcintyre. [employer] spoke with [facility]. [facility] stated they would be able to transport the patient between 5:30 and 6pm this evening. [employer] notified CRICKET Mcintyre. D[employer] MAKER [employer] notified Cory Duvall and will fax discharge orders. -VIANCA Trujillo
--- NOTE | 2019-06-27 14:05 | NUR ---
Pt not cooperative with photographs of wounds. Unable to photographs at this time.
--- NOTE | 2019-06-27 15:00 | NUR ---
Pt has attempted multiple times to get up out of bed, setting off bed alarm.
[2019-06-27 16:00] VITALS: BP 127/65
--- NOTE | 2019-06-27 18:28 | NUR ---
Notified Cory Edwards that pt would not be picked up now until 1030. [facility] had emergency and has cancelled picked edge sewing machine operator states they will be able to picked edge sewing machine operator pt tomorrow. policyholder information clerk had called other local ambulance crews and the only company available was [employer]. States they could be here in 4 hours to get pt.
--- NOTE | 2019-06-27 18:30 | NUR ---
Message left for pt daughter that fruit picker machine operator is now later than expected.
[2019-06-27 20:00] VITALS: BP 141/74
--- NOTE | 2019-06-27 21:27 | NUR ---
PT REFUSING BLOOD SUGAR CHECK/COVERAGE THIS EVENING.
--- NOTE | 2019-06-27 22:59 | NUR ---
MARGARETG IN TO [employer] STATION ATTENDANT PATIENT AT THIS TIME.
--- NOTE | 2019-06-27 23:09 | NUR ---
CALLED [facility], SPOKE WITH KOSTA, GIVEN REPORT VIA TELEPHONE. PT CHART COMPLETED AT THIS TIME.
== END 2019-06-27 23:09 | disposition other institution (70) | DRG 637 ==
LOC: 5E 14:35
PROVIDERS: Internal Medicine Critical Care Medicine; Registered Nurse; Student in an Organized Health Care Education/Training Program; ADMIT Internal Medicine
DX: E11.649 Type 2 diabetes mellitus with hypoglycemia without coma (principal); J15.6 Pneumonia due to other Gram-negative bacteria; G93.41 Metabolic encephalopathy; I50.41 Acute combined systolic (congestive) and diastolic (congestive) heart failure; E44.0 Moderate protein-calorie malnutrition; D68.69 Other thrombophilia; I13.0 Hypertensive heart and chronic kidney disease with heart failure and stage 1 through stage 4 chronic kidney disease, or unspecified chronic kidney disease; J44.0 Chronic obstructive pulmonary disease with (acute) lower respiratory infection; I48.20 Chronic atrial fibrillation, unspecified; N17.0 Acute kidney failure with tubular necrosis; I82.402 Acute embolism and thrombosis of unspecified deep veins of left lower extremity; E03.9 Hypothyroidism, unspecified; D72.829 Elevated white blood cell count, unspecified; D64.9 Anemia, unspecified; E11.22 Type 2 diabetes mellitus with diabetic chronic kidney disease; N18.3 Chronic kidney disease, stage 3 (moderate); K21.9 Gastro-esophageal reflux disease without esophagitis; E78.5 Hyperlipidemia, unspecified; I25.10 Atherosclerotic heart disease of native coronary artery without angina pectoris; F41.9 Anxiety disorder, unspecified; Z66 Do not resuscitate; K59.00 Constipation, unspecified; Z51.5 Encounter for palliative care; E11.51 Type 2 diabetes mellitus with diabetic peripheral angiopathy without gangrene; G47.00 Insomnia, unspecified; F63.81 Intermittent explosive disorder; T45.515A Adverse effect of anticoagulants, initial encounter; G30.9 Alzheimer's disease, unspecified; F02.80 Dementia in other diseases classified elsewhere, unspecified severity, without behavioral disturbance, psychotic disturbance, mood disturbance, and anxiety; Y92.89 Other specified places as the place of occurrence of the external cause; Z82.49 Family history of ischemic heart disease and other diseases of the circulatory system; Z83.6 Family history of other diseases of the respiratory system; Z79.899 Other long term (current) drug therapy; Z79.4 Long term (current) use of insulin; Z68.21 Body mass index [BMI] 21.0-21.9, adult